=== PATIENT | female | born 2000 ===

== ENCOUNTER 2022-03-11 10:30 | Outpatient (RCR) | payer OTHER, SELFPAY ==
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
[2022-03-03 12:18] VITALS: BP 110/62; PULSE 80; TEMP 36.9
[2022-03-03 12:29] VITALS: BMI 25.3
[2022-03-03 12:57] LABS: Amphetamine Screen Urine Not Detected (Not Detect); Barbiturates, Urine Not Detected (Not Detect); Benzodiazepines Screen Urine Not Detected (Not Detect); Cannabinoid Screen Urine POSITIVE (Not Detect); Cocaine Screen Urine Not Detected (Not Detect); Fentanyl, urine Not Detected (Not Detect); Opiate Screen Urine Not Detected (Not Detect); Phencyclidine Screen Urine Not Detected (Not Detect)
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
--- NOTE | 2022-03-04 08:28 | PC.NURSE ---
Esther called Ashia this morning and stated she had a sore throat and headache and will not be in the program today.
--- NOTE | 2022-03-04 15:38 | HO.PHPIOP ---
Case opened in [place] team
--- NOTE | 2022-03-08 12:21 | PC.NURSE ---
Confirmed patient medications with patient's pharmacy, patients mother who administers patient medications, and patient. Amitriptyline ready to p/u at pharmacy today.
--- NOTE | 2022-03-09 12:41 | P.PNPSP_ITS ---
Subjective Subjective Date of Service: 03/09/22 Reason For Visit: MDD, BPD, BREE, AUD, Cannabis use disorder Medical Problems Affecting Mental Status: No Interim History: Depressed, passive SI. No plan or intent, feels safe. Stopped using cannabis several days ago, due to her vaping pen being broken. Not drinking, says has no current access to alcohol. Sleep and appetite good. Having vivid dreams. Medication Compliance: Yes Side effects from medications: No Attending Groups: Yes Review of Systems Acute medical concerns: No Medical Review of Systems: unchanged Review of Systems Review of Systems Yes all other systems are reviewed and are negative Constitutional: Reports no additional constitutional complaints Mental Status Exam Mental Status Exam Narrative: NAD. More engageable, no perceptual disturbances noted. Passive SI, with no intent or plan. Patient Appearance: Appropriate Patient Orientation: Person, Place, Time and Situation Level of Consciousness: Appropriate Patient Behavior: Appropriate, Cooperative and Good Eye Contact Mood Description: Depressed Affect Description: Depressed and Anxious Patient Cognition Impaired: No Ability to Follow Directions: Good Speech Pattern: Clear Memory Description: Intact Delusions: Not Present Perceptual Disturbances: Depersonalization Thought Process: Intact Thought Content: positive for Suicidal Ideation (passive, no intent/plan) Depressive Symptoms: Increased Anxiety, Loss of Int. in Activity, Unhappiness, Thoughts of /Suicide and Loss of Energy Judgement: Fair Diagnostics Vital Signs (24Hr): BMI result Body Mass Index 25.3 Assessment & Plan Assessment & Plan (1) Major depressive disorder, recurrent severe without psychotic features: Status: Acute Code(s): F33.2 - Major depressive disorder, recurrent severe without psychotic features Assessment and Plan: Patient describes mood as ?depressed ?. States that she had been feeling fairly well this morning, and that has been noticing increased depression as day progresses. More engageable during encounter, speech articulate, good eye contact. Has not used cannabis in several days, due to her vape pen being broken. Denies any withdrawals or cravings at this time. Has not had any alcohol past few days, states that she does not have access to any at this. Denies any withdrawals or cravings at this time. Finding groups helpful. Has been having vivid dreams past several days, reports otherwise sleep is good. Continues with passive SI, denies any intent or plan, feels safe. Satisfied with current medication regimen. (2) Alcohol dependence, uncomplicated: Status: Acute Code(s): F10.20 - Alcohol dependence, uncomplicated (3) Cannabis dependence, uncomplicated: Status: Acute Code(s): F12.20 - Cannabis dependence, uncomplicated (4) Generalized anxiety disorder: Status: Acute Code(s): F41.1 - Generalized anxiety disorder (5) Borderline personality disorder: Status: Acute Code(s): F60.3 - Borderline personality disorder Plan 1. Continue with current [facility] plan of care. 2. Continue with current medication regimen as prescribed by outpatient provider. 3. Follow-up as per protocol. Patient educated on: diagnosis, medication risk/benefits, substance abuse and therapeutic strategies Informed Consent: understands Reason for contiued partial hosp. stay Substantial Risk for: harm to self, inability to function and rapid decompensation Certification I certify that partial hospital treatment is medically necessary due to the symptoms and problems resulting from the patient's mental illness and the failure to treat the patient at the partial hospital level of care would likely result in the patient requiring inpatient psychiatric care which could not be prevented at a less intensive level of care. Total time managing care of this patient today __20__ minutes. Discharge Plan Discharge Attending provider: Fabrizio Nelson Medications: No Action norgestimate-ethinyl estradiol 0.25-35 mg-mcg tablet 1 tab PO DAILY clonidine HCl 0.1 mg tablet 1 tab PO BID PRN (Reason: Anxiety) lamotrigine 25 mg tablet See Rx Instructions .ROUTE .COMPLEX Rx Instructions: Take one tab x 2 weeks, then take 2 tabs for 2 weeks then take 100 mg daily. amitriptyline 25 mg tablet 1 tab PO BEDTIME risperidone 1 mg tablet 1.5 tab PO BID
== END 2022-03-11 23:59 | disposition home or self-care (01) ==
LOC: HO.PHPA 10:30
PROVIDERS: Visit Provider Psychiatry & Neurology Psychiatry
DX: F33.2 Major depressive disorder, recurrent severe without psychotic features (principal); F41.1 Generalized anxiety disorder; F60.3 Borderline personality disorder; F10.20 Alcohol dependence, uncomplicated; F12.20 Cannabis dependence, uncomplicated; Z79.899 Other long term (current) drug therapy
CPT/HCPCS: 80307; 90791; 90853